=== PATIENT | female | born 1970 | race Caucasian/White ===

== ENCOUNTER 2022-02-04 14:57 | Outpatient (CLI) | payer OTHER, SELFPAY | END 2022-02-04 14:58 | disposition home or self-care (01) | LOC: FRMREF 14:58 | PROVIDERS: PCP Family Medicine; Visit Provider Dermatology | DX: L81.9 Disorder of pigmentation, unspecified (principal); D22.9 Melanocytic nevi, unspecified; L81.4 Other melanin hyperpigmentation; Z12.83 Encounter for screening for malignant neoplasm of skin ==

== ENCOUNTER 2022-07-17 10:55 | Outpatient (CLI) | payer OTHER, SELFPAY ==
--- NOTE | 2022-07-17 11:15 | CRLHL7_ITS ---
For Patients: As a result of the Century Cures Act, medical imaging exams and procedure reports are released immediately into your electronic medical record. You may view this report before your referring provider. If you have questions, please contact your health care provider. Technique: Double-contrast esophagram performed after the uneventful administration of effervescent crystals and thick barium followed by thin barium. Fluoroscopy time 1 minutes 13 seconds. Indication: GERD WITH Hiatal HERNIA Comparison: None. Findings: Esophagus: Normal morphology and motility. No stricture or mass. No ulcer or inflammation. Gastroesophageal reflux: None visualized. However, there is a sliding hiatal hernia measuring 2.7 cm. Impression: Sliding hiatal hernia. Normal motility. Reflux is not observed. Dictated by Víctor Cisneros MD @ 07/17/2022 12:18:14 PM (Electronically Signed)
== END 2022-07-17 10:56 | disposition home or self-care (01) ==
PROVIDERS: PCP Physician Assistant Medical; Visit Provider Surgery
DX: K21.9 Gastro-esophageal reflux disease without esophagitis (principal); K44.9 Diaphragmatic hernia without obstruction or gangrene
CPT/HCPCS: 74221

== ENCOUNTER 2024-09-19 09:05 | Day surgery (SDC) | payer OTHER, SELFPAY ==
[2024-09-19] VITALS (14 sets, daily range): BP systolic 93–135; BP diastolic 54–81; PULSE 58–80; RESP 14–17; TEMP 36.4–36.9; O2SAT 92–97; BMI 23.3
--- OUTSIDE RECORDS SUMMARY | 2024-09-19 09:08 | XMS_ITS | Clinical Summary ---
Author Organization [facility] Address [place], [place] [address] Care Team Providers Care Director Business Intelligence Name Role Phone Radha Sheppard Primary Care Provider Allergies Active Allergy Reactions Criticality Noted Date Comments Homeopathic Products 12/06/2008 Medications MULTIVITAMIN TAB take 1 tablet by oral route once daily with food 0 9 Active albuterol (PROVENTIL; VENTOLIN) 90 mcg/actuation inhalerIndication s:Unspecified asthma(493.90) Inhale 1 Puff by mouth every 4 hours if needed. Please fill at patient's request. 1 Inhaler 1 2 Active mometasone-formot lopez (DULERA) 100-5 mcg/actuation inhalerIndication s:Cough Inhale 1 Puff by mouth 2 times daily. 1 Inhaler 5 9 Active omeprazole (PRILOSEC) 40 mg Delayed-Release capsuleIndication s:Reflux esophagitis Take 1 Capsule (40 mg) by mouth once daily. Take 30-60 minutes before a meal/food once a day. 30 capsule. 11 1 Active fluticasone propion-salmetero L (Advair Diskus) 250-50 mcg/Dose diskus inhalerIndication s:Mild intermittent asthma without complication Inhale 1 Puff by mouth in the morning and 1 Puff in the evening. 180 Each 3 2 Active citalopram (CELEXA) 40 mg tabletIndications :Anxiety Take 1 Tablet (40 mg) by mouth once daily in the morning. 90 Tablet 3 4 Active levothyroxine (SYNTHROID) 150 mcg tabletIndications :Hypothyroidism, unspecified type Take 1 Tablet (150 mcg) by mouth once daily. 90 Tablet 3 4 Active mometasone-formot lopez (Dulera) 200-5 mcg/actuation inhalerIndication s:Mild intermittent asthma without complication Inhale 2 Puffs by mouth two times daily. 3 Each 1 4 Active albuterol HFA (Ventolin HFA) 90 mcg/actuation inhalerIndication s:Cough, unspecified type Inhale 1 Puff by mouth every 6 hours if needed for Shortness Of Breath. 18 Each 1 4 Active fluticasone propion-salmetero L (ADVAIR) 250-50 mcg/Dose diskus inhalerIndication s:Mild intermittent asthma without complication Inhale 1 Puff by mouth two times daily. 180 Each 3 4 Active Active Problems Problem Noted Date Diagnosed Date H/O total hysterectomy 12/04/2021 Routine adult health maintenance 01/11/2019 Overview (01/11/2019): Colonoscopy 01/2019 normal, repeat in 10 years Unspecified hypothyroidism 02/27/2009 Unspecified asthma(493.90) 02/27/2009 Biliary colic 02/27/2009 Allergic rhinitis, cause unspecified 02/27/2009 Benign nevus of skin 02/27/2009 GERD (gastroesophageal reflux disease) 9 Overview (08/19/2019): EGD 08/2019 reflux esophagitis, try omeprazole 40 mg per day Preop exam for internal medicine 02/27/2009 Hiatal hernia 02/27/2009 Encounters Date Type Department Care Team Description 09/09/2024 7:50 AM INDEPENDENT LIVING ADVISOR Office Visit [facility] [address] [place] [address] Radha Sheppard PA Preoperative Exam (R rotator cuff repar) 09/08/2024 Travel 08/19/2024 Travel 07/14/2024 4:20 PM INDEPENDENT LIVING ADVISOR Ancillary Procedure [facility] [address] [place] [address] 07/14/2024 Travel 07/09/2024 Travel from Last 3 Months Immunizations Name Administration Dates Next Due AMB Influenza, (Flumist) Vee e Intranasal,LAIV4 (Flu Clinic Only) 05/21/2015 AMB Influenza, IIV3 (Age >=3 years) Preserve Free (Flu Clinic Only) 06/08/2013 AMB Influenza, IIV3 (Age >=3 years)(Flu Clinic Only) 05/24/2012,07/03/2010,06/01/2008 AMB Influenza, IIV4 PF (=>6 mos Flulaval,Fluzone Fluarix)(Flu Clinic Only) 04/25/2020,06/21/2019,06/02/2018,2015 Influenza A (H1N1), Inactivated 07/03/2009 Influenza Virus, Unspecified 05/21/2015,04/28/20 14 Influenza, IIV3 (Age 6-35 mos) 04/11/2011 Influenza, IIV3 (Age >=3 years) 04/11/2011,04/23,06/02/2007 Influenza, IIV4 06/09/2023,06/30/2022,05/20/2021 Influenza, IIV4 (=>6mos) MDV 05/13/2017 Influenza,LAIV4 Live Intrana elisa (Flumist) 04/28/2014 Zoster (Shingrix-RZV, recombinant) 04/13/2024 Family History Medical History Relation Name Comments Good Health Father Alzheimer's disease Mother Parkinsonism Mother Anesthesia Problem Neg. Cancer-breast Sister Cancer-ovarian No Family History Relation Name Status Comments Father Mother Neg. Sister Social History Tobacco Use Types Packs/Day Years Used Date Smoking Tobacco: Never Smokeless Tobacco: Never Tobacco Cessation:Counseling Given: Not Answered Alcohol Use Standard Drinks/Week Comments Yes 0 (1 standard drink = 0.6 oz pur e alcohol) occas PHQ-2 Answer Date Recorded PHQ-2 TOTAL SCORE 1 08/16/2021 Social Connections Answer Date Recorded Do you often feel lonely or isolated from those around you? 0 04/11/2024 Financial Resource Strain Answer Date R ecorded Difficulty of Paying Living Expenses 3 04/11/2024 Difficulty of Paying Living Expenses Not on file 04/11/2024 Food Insecurity Answer Date Recorded Do you worry your food will run out before you are able to buy more? 1 04/11/2024 Transportation Needs Answer Date Record ed Does lack of transportation keep you from medica l appointments? 1 04/11/2024 Does lack of transportation keep you from work, meetings or getting things that you need? 1 04/11/2024 Housing Stability Answer Date Recorded What is your housing situation today? 1 04/11/2024 Utilities Answer Date Recorded Do you have trouble paying f or utilities (for example, heat, electricity, water, phone)? 1 04/11/2024 Comments No Sex and Gender Information Value Date Recorded Sex Assigned at Female 04/11/2024 4:50 PM CDT Legal Sex Female 5:21 AM INDEPENDENT LIVING ADVISOR Gender Identity Female 04/11/2024 4:50 PM CDT Sexual Orientation Straight 04/11/2024 4: 50 PM CDT Travel History Travel Start Travel End [facility] 08/26/2024 09/02/2024 Obstetrics History Last Filed Vital Signs Vital Sign Reading Time Taken Comments Blood Pressure 125/78 09/09/2024 7:56 AM INDEPENDENT LIVING ADVISOR Pulse 67 09/09/2024 7:56 AM INDEPENDENT LIVING ADVISOR Temperature 36.7 C (98 F) 11/09/2019 8:47 AM CDT Respiratory Rate - - Oxygen Saturation 98% 07/09/2022 10:08 AM INDEPENDENT LIVING ADVISOR Inhaled Oxygen Concentration - - Weight 63.5 kg (140 lb) 09/09/2024 7:56 AM INDEPENDENT LIVING ADVISOR Height 165.1 cm (5' 5) 04/13/2024 10:31 AM CDT Body Mass Index 23.3 04/13/2024 10:31 AM CDT Plan of Treatment Upcoming Encounters Date Type Department Care Team (Late st Contact Info) Description 10/10/2024 11:45 AM INDEPENDENT LIVING ADVISOR Office Visit [facility] [address] [address] [place] [address] [place] [address] Health Maintenance Due Date Last Done Comments Tdap 1979 HIV for age 15-65 1983 Hepatitis C screening for ag e 18-79 1986 Tetanus booster 1988 Pneumococcal series for age 50+ (1 of 1 - PCV) 2018 Depression screening for age 12+ 08/16/2022 08/16/2021, 06/06/2020, 06/06/2020, Additional history exists COVID-19 vaccine series (3 - 2023- season) 2024 12/27/2020, 11/29/2020 Influenza for age 50-64 04/10/2024 06/09/20 23, 06/30/2022, 05/20/2021, Additional history exists Zoster (shingles) series for age 50+ (2 of 2) 06/08/2024 04/13/2024 BMI (ht and wt on same day) for age 18+ 04/13/2025 04/13/2024, 08/23/2021, 08/16/2021, Additional history exists Mammogram for age 45-75 07/14/2025 07/14/20 24, 06/29/2023, 06/25/2022, Additional history exists Colonoscopy through age 75 01/11/202901/11, 01/11/2019, 01/11/2019 Lipids for age 45-75 04/13/2029 04/13/2024, 12/22/2022, 08/16/2021, Additional history exists Procedures Procedure Name Priority Date/Time Associated Diagnosis Comments XR MAMMO TAY BILAT SCREEN Routine 07/14/2024 4:36 PM INDEPENDENT LIVING ADVISOR Routine adult health maintenance LIPID PANEL W REFLEX MEASURED LDL Routine 04/13/2024 11:30 AM CDT Screening cholesterol level COLONOSCOPY 01/11/2019 8:58 AM CDT from Last 3 Months or Most Recently Relevant to Health Maintenance Results * XR MAMMO TAY BILAT SCREEN (07/14/2024 4:36 PM INDEPENDENT LIVING ADVISOR) Anatomical Region Laterality Modality BREASTS, Breast Left, Breast Right Bilateral Mammography Impressions 07/17/2024 8:32 AM INDEPENDENT LIVING ADVISOR There is no radiographic evidence for malignancy. Recommend annual mammograms. MAMMOGRAM ASSESSMENT: ACR 1 Negative PATIENTS: You will also receive a letter with your examination results in an easy to read format. If you have questions about your results, please contact your referring provider. Narrative 07/17/2024 8:32 AM INDEPENDENT LIVING ADVISOR For Patients: As a result of the Century Cures Act, medical imaging exams and procedure reports are released immediately into your electronic medical record. You may view this report before your referring provider. If you have questions, please contact your health care provider. XR MAMMO TAY BILAT SCREEN [[id number]] CLINICAL HISTORY: This is an asymptomatic 53 y.o. patient. INDICATION FOR EXAM: Mammogram Screening. TECHNIQUE: CC & MLO views were obtained. This study was evaluated with the assistance of Computer-Aided Detection. Breast Tomosynthesis was used in interpretation. COMPARISON FILM: Yes 06/25/22 [facility] [employer] 05/06/21 [facility] FINDINGS: The breasts are heterogeneously dense, which may obscure small masses. There are no dominant masses, suspicious micro calcifications or areas of architectural distortion. us Radha Sheppard PA MAMMO Final R esult * (ABNORMAL) LIPID PANEL W REFLEX MEASURED LDL (04/13/2024 11:30 AM CDT) CHOLESTEROL,TOTAL 308(H) 100 - 199 mg/dL 04/13/2024 11:35 PM T [facility] Comment: Cholesterol, Total Reference Ranges Desirable <200 mg/dL Borderline 200-239 mg/dL High >=240 mg/dL TRIGLYCERIDES 176(H) <150 mg/dL 04/13/2024 11:35 PM CDT [facility] HDL CHOLESTEROL 80 >40 mg/dL 11:35 PM CDT [facility] NON-HDL CHOLESTEROL 228(H) <145 mg/dl 04/13/2024 11:35 PM CDT [facility] CHOL/HDL RATIO 3.85 <4.50 04/13/2024 11:35 PM CDT [facility] LDL CHOLESTEROL 193(H) <=130 mg/dL 04/13/2024 11:35 PM T [facility] VLDL CHOLESTEROL 35(H) <=30 mg/dL 04/13/2024 11:35 PM CDT [facility] PROVIDER ORDERED STATUS RANDOM 04/13/2024 11:35 PM CDT [facility] Blood BLOOD SPECIMEN / Unknown Venipuncture / Unknown 04/13/2024 11:30 AM CDT 04/13/2024 11:30 AM CDT us Radha FELIPE CHEMISTRY Final R esult [facility] [address] [place] [address], [place] * COLONOSCOPY (01/11/2019 8:58 AM CDT) 01/11/2019 8:58 AM CDT Narrative Transcriptions Malcolm Adams MD - 01/11/2019 9:51 AM CDT Patient Name: Yesenia Delacruz Procedure Date: 01/11/2019 Gender: Female Date of : 1970 Admit Type: Outpatient Procedure: Colonoscopy Proceduralist: Malcolm Adams MD , Florinda Luna (Nurse) Indications/Pre-Op Diagnosis: Screening for colorectal malignant neoplasm, This is the patient's first colonoscopy Medications: Fentanyl 200 micrograms IV, Midazolam 4 mgIV, The level of sedation administered wasmoderate Procedure Description: The patient had risks, benefits and alternatives explained to andgave informed consent. The patient had a stable cardiopulmonary status and judged an adequate candidate for conscious sedation. The PCF-[id number] [id number] was passed through the anus and advanced tothe cecum, identified by appendiceal orifice and ileocecal valve. The colonoscopy was performed without difficulty. The patient toleratedthe procedure well. The quality of the bowel preparation was good. The ileocecal valve, appendiceal orifice, and rectum were photographed. Complications: No immediate complications. Estimated Blood Loss & Specimen: Estimated blood loss: none. Specimen collected - None Findings: The perianal and digital rectal examinations were normal. The colon (entire examined portion) was moderately redundant. The exam was otherwise without abnormality on direct and retroflexion views. Impressions/Post-Op Diagnosis: - Redundant colon. - The examination was otherwise normal on direct and retroflexionviews. - No specimens collected. Recommendation: - Patient has a contact number available for emergencies. The signsand symptoms of potential delayed complications were discussed with the patient. Return to normal activities tomorrow. Written discharge instructions were provided to the patient. - Resume previous diet. - Continue present medications. - Repeat colonoscopy in 10 years for screening purposes. Moderate Sedation: Moderate (conscious) sedation was administered by the endoscopy nurse and supervised by the endoscopist. The following parameters were monitored: oxygen saturation, heart rate, respiratory rate, blood pressure, adequacy of pulmonary ventilation and reponse to care. [facility] and nursing notes for moderate sedation details. Total physician intraservice time was 24 minutes. Malcolm Adams MD 01/11/2019 9:51:00 AM This report has been signed electronically. Note Initiated On: 01/11/2019 8:58 AM Procedure Code(s): --- Professional --- 88723, Colonoscopy, flexible; diagnostic, including collection of specimen(s) bybrushing or washing, when performed (separateprocedure) Diagnosis Code(s): --- Professional --- Z12.11, Encounter for screening formalignant neoplasm of colon Q43.8, Other specified congenitalmalformations of intestine CPT copyright 2017 [employer]. All rights reserved. The codes documented in this report are preliminary and upon chief lifestyle officer reviewmay be revised to meet current compliance requirements. Scope In: 9:24:00 AM Scope Withdrawal Time 0 hours 6 minutes 22 seconds Scope Out: 9:46:10 AM Malcolm Adams MD PROCEDURE ORD Final Res ult from Last 3 Months or Most Recently Relevant to Health Maintenance Insurance [employer] [place] [employer] [id number] Care Teams Director Business Intelligence Relationship Specialty Start Date End Date Radha Sheppard PA [address] [place] [address] PCP - General Physician Wheel Installer 07/27/17
--- NOTE | 2024-09-19 09:26 | W.PM.H&PU ---
History & Physical Update History & Physical Update H&P Reviewed and patient assessed: No changes noted
[2024-09-19] MEDS: SODIUM CHLORIDE 0.9 % (FLUSH) 10 ML SYRINGE IVF (09:40)
--- NOTE | 2024-09-19 10:16 | SUR.PREOP ---
TIME?OUT:?1016 PT/Vania Kaur RN/Dr. Glynn MDA?VERIFICATION?OF?SURGICAL?SITE right shoulder,?PROCEDURE,?AND?CONSENT OBTAINED?PRIOR?TO?INVASIVE?PROCEDURE.
[2024-09-19] MEDS: fentaNYL 100 MCG/2 ML inj IVP (10:17)
[2024-09-19] MEDS: MIDAZOLAM HCL 1 MG/ML inj IVP (10:17)
[2024-09-19] MEDS: 0.9 % SODIUM CHLORIDE 500 ML 500 ML 100 ML IV ×2 (10:21→11:38)
[2024-09-19] MEDS: CEFAZOLIN 2 GM in 0.9 % SODIUM CHLORIDE Mini-bag 100 ML IVPB (10:39)
[2024-09-19] MEDS: EPINEPHrine 1 MG in SODIUM CHLORIDE IRRIG SOLUTION 3,000 ML 3001 MG IRRIGATION ×2 (10:53→11:35)
--- NOTE | 2024-09-19 11:59 | PM.ORPRC ---
Procedure Note Date of procedure: 09/19/24 Procedure: PREOPERATIVE DIAGNOSES: 1. Right shoulder rotator cuff tear. 2. 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 Right shoulder anterior labral tearing 4. Right shoulder subacromial impingement syndrome. POSTOPERATIVE DIAGNOSES: 1. Right shoulder rotator cuff tear - supraspinatus & subscapularis. 2. 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 Right shoulder loose body measuring 1 mm thick but 9 mm in diameter 4. Right shoulder anterior labral tearing 5. Right shoulder subacromial impingement syndrome. NAME OF OPERATION: 1. Right shoulder arthroscopic rotator cuff repair - near full-thickness supraspinatus and upper subscapularis 2. Right shoulder arthroscopic limited glenohumeral debridement 3. Right shoulder arthroscopic loose body removal 4. Right shoulder arthroscopic bursectomy, subacromial decompression/partial acromioplasty. SURGEON: Héctor Nixon MD CASE ASSISTANT: Júnior Yang PA-C. Of note, a skilled assistant food service manager was critical for this case to aide in patient positioning, suture manipulation, arm positioning, instrument positioning, and closure. ANESTHESIA: General plus preoperative supraclavicular block. EBL: 25 mL IMPLANTS: Arthrex 4.75 mm BioComposite SwiveLock suture anchor (x3); Arthrex 5.5 mm BioComposite SwiveLock suture anchor (x2); COMPLICATIONS: None evident INDICATIONS: The patient is a pleasant, 54-year-old female who has experienced right shoulder pain that has been increasing in recent time. Physical exam and imaging were consistent with a rotator cuff tear. Given their findings, as well as the weakness and pain, and inadequate response to nonoperative management, recommendation was made for surgery. FINDINGS: Exam under anesthesia revealed stable shoulder with excellent range of motion. The diagnostic arthroscopy revealed relatively healthy chondral surfaces the glenohumeral joint with exception of the inferior central humeral head which had a full-thickness chondral defect measuring approximately 12 mm in diameter. The Subscapularis tendon was torn from its upper border with mild-moderate traction. The long head of the biceps tendon was intact and without significant partial tearing nor subluxation. The superior rotator cuff tendon was found to be torn and high-grade partial-thickness manner involving much of the supraspinatus. The labrum was degeneratively torn in the anterior and superior aspects but still had a strong biceps origin. 1 significant loose body was encountered that measured approximately 9 mm in diameter by 1 mm thick. Beyond that, there were some other small loose bodies in the shoulder that were all either removed with grasper and or resected with the shaver. PROCEDURE: Following a thorough discussion of risks, benefits, and alternatives, consent was obtained and the right shoulder was marked. The patient was brought to the operating room and placed supine on the operating table. Induction of anesthesia was completed after preoperative supraclavicular block was administered in preop holding. Appropriate time out was performed identifying proper patient, site, and procedure. 2 g IV Ancef was administered within 1 hour of incision preoperatively. The right upper extremity was prepped and draped in the appropriate sterile fashion using ChloraPrep prep. This was after the patient was positioned in the beach chair with their head in neutral alignment and all bony prominences well padded. The shoulder was insufflated with 20mL of normal saline via an 18g spinal needle from a posterior approach. An 11 blade skin incision allowed a blunt trochar to be inserted and diagnostic arthroscopy to be performed with the findings as noted above. An anterior portal was established with an outside in technique. This allowed the probe to be inserted and confirm the diagnostic arthroscopic findings. The shaver was then inserted and allowed debridement of the anterior and superior labrum as well as the loose bodies noted above. Following this, the upper border subscapularis was repaired after debriding the lesser tuberosity with the shaver and Holiday cautery. Subscapularis was captured in horizontal mattress fashion with a fiber tape suture. The tails were brought to a single anchor in the lesser tuberosity with excellent reapproximation of the subscap tendon and good excursion/tension. Thereafter, the subacromial space was entered. Here, a complete bursectomy and partial acromioplasty/subacromial decompression was performed with a combination of radiofrequency ablator, the shaver, and a 5.5 mm bur. Further inspection of the supraspinatus and infraspinatus rotator cuff was performed. This identified the tear as noted above. The margins of the tear were debrided, and the greater tuberosity was debrided with a combination of the apollo cautery, shaver, and bur on reverse setting. After gentle decortication, a speed bridge configuration with a medial bryn was planned. 2 medial anchors were placed and the sutures were passed through the rotator cuff with a fiber link (4.75 mm knotless SwiveLock suture anchor). The knotless suture tails were then retrieved, crossed, and cinched down for the medial bryn purpose. A tail from each of the medial row anchor (SutureTape from the anterior anchor and FiberTape from the posterior anchor) were then retrieved and brought to a lateral row anchor. Excellent reapproximation of the tissue to the greater tuberosity was achieved with broad footprint compression. A small dog ear in the posterior aspect was repaired with a luggage tag FiberLink suture brought to the anterolateral anchor. The rotator cuff showed excellent reapproximation of the greater tuberosity with good security upon probing. Prior to anchor motor pool driver removal, the eyelet sutures were tugged on for each anchor and found that the anchor had excellent stability within the bone. The shoulder was placed through range of motion and found to be stable. The rotator cuff was re-probed and found to be stable. Instruments were removed. Excess fluid was drained, closure performed with 4-0 Monocryl and Steri-Strips. Dressings were applied. Sling was applied. The patient was awoken from anesthesia and transferred to the PACU in stable condition. A skilled assistant food service manager was critical for this case to aid in patient positioning, limb positioning, skill to manipulate arthroscopic instruments and camera, suture management, patient safety, and closure. PLAN: 1. Elbow, forearm, wrist and digit range of motion as tolerated. 2. Encouraged ice. 3. Oxycodone for pain as needed. 4. Sling at all times except for ROM and showering. 5. Follow up with PA visit in 1-2 weeks for wound check. Initiate physical therapy following that visit for passive range of motion. Initiate active assisted range of motion at 4- weeks. May do pendulums now.
--- NOTE | 2024-09-19 12:18 | P.ANES_ITS ---
Anesthesia Charges Start Date/Time Anesthesia Start Date: 09/19/24 Anesthesia Start Time: 10:22 Stop Date/Time Anesthesia Stop Date: 09/19/24 Anesthesia Stop Time: 12:19 Coding CPT Codes CPT Codes: ANESTH SURGERY OF SHOULDER - 39665 ([id number]) QK - BATCH ROOM TECHNICIAN 2-4 CNCRNT ANES PROC, QX - PIT TANNER SVC W/ MED DIRECTION
--- NOTE | 2024-09-19 12:18 | W.ANESCHARGE ---
Anesthesia Charges Start Date/Time Anesthesia Start Date: 09/19/24 Anesthesia Start Time: 10:22 Stop Date/Time Anesthesia Stop Date: 09/19/24 Anesthesia Stop Time: 12:19 Coding CPT Codes CPT Codes: ANESTH SURGERY OF SHOULDER - 91907 ([id number]) QK - GRANITE CHIP TERRAZZO FINISHER 2-4 CNCRNT ANES PROC, QX - COMMERCIAL LENDING RELATIONSHIP MANAGER SVC W/ MED DIRECTION
--- NOTE | 2024-09-19 12:20 | P.ANES_ITS ---
Anesthesia Charges Start Date/Time Anesthesia Start Date: 09/19/24 Anesthesia Start Time: 10:22 Stop Date/Time Anesthesia Stop Date: 09/19/24 Anesthesia Stop Time: 12:19 Coding CPT Codes CPT Codes: ANESTH SURGERY OF SHOULDER - 96725 ([id number]) QK - SPOOLING MACHINE OPERATOR 2-4 CNCRNT ANES PROC, QX - BIOMETRICS EXPERIMENTALIST SVC W/ MD MED DIRECTION, P2 - PATIENT W/MILD SYST DISEASE
--- NOTE | 2024-09-19 12:20 | W.ANESCHARGE ---
Anesthesia Charges Start Date/Time Anesthesia Start Date: 09/19/24 Anesthesia Start Time: 10:22 Stop Date/Time Anesthesia Stop Date: 09/19/24 Anesthesia Stop Time: 12:19 Coding CPT Codes CPT Codes: ANESTH SURGERY OF SHOULDER - 81638 ([id number]) QK - BLANKET WINDER OPERATOR 2-4 CNCRNT ANES PROC, QX - HOME AND FAMILY LIVING PROFESSOR SVC W/ MD MED DIRECTION, P2 - PATIENT W/MILD SYST DISEASE
--- NOTE | 2024-09-19 12:20 | W.PM.NB ---
Nerve Block Nerve Block Time Seen by Provider: 10:20 Date Seen: 09/19/24 Type of block requested by surgeon for post-operative analgesia: intercostal Side: right Time out performed: Yes Verification of patient name: Yes Verification of date of : Yes Site marking: site marked Name of person performing procedure: Glynn Continuous monitoring Was continuous monitoring of O2 sat, B/P, nuclear monitoring technician, recorded every 15 minutes?: Yes Procedure Checklist: sterile prep, needles and gloves Ultrasound guided. Images saved: Yes Medications given in 5ml increments after negative aspiration: Ropivicaine %: 0.5 mL: 20 Needle gauge: 22 Precedex (mcg): 25 Patient tolerated procedure well: Yes Block Charges Block Charge (with Pro Fee): Brachial Plexus Use of Ultrasound Machine for Block: Yes- US Guidance/pain block
== END 2024-09-19 13:59 | disposition home or self-care (01) ==
LOC: OR 09:06
PROVIDERS: PCP Physician Assistant Medical; Visit Provider Orthopaedic Surgery Sports Medicine
PROC: (CPT 29805; principal; 2024-09-19 11:00)
DX: M75.101 Unspecified rotator cuff tear or rupture of right shoulder, not specified as traumatic (principal); M94.211 Chondromalacia, right shoulder; S43.431A Superior glenoid labrum lesion of right shoulder, initial encounter; M75.41 Impingement syndrome of right shoulder; M24.011 Loose body in right shoulder; G89.18 Other acute postprocedural pain
CPT/HCPCS: 29827; 29826; 29819; 29822; 01630; 64415; 76942; C1713; J0171; J0690; J2250; J2371; J2704; J2710; J2795; J3010; J7030; L3670